=== PATIENT | male | born 1965 | race Caucasian/White ===

== ENCOUNTER → 2016-08-05 | Day surgery (SDC) | payer MEDICARE ==
[~2016-08-05] MED LIST: ALBUTEROL17 GM INH; ALPRAZOLAM PO; CELEXA PO; COUMADIN PO; COUMADIN3 MG PO; FLEXERIL10 MG PO; FLONASE16 GM; GOUT MEDICATION PO; LIPITOR PO; MAXZIDE-25 MG1 UDTAB PO; NEURONTIN600 MG PO; OXYCONTIN20 MG PO; PERCOCET10 PO; PRAVASTATIN SOD20 MG PO; ROBAXIN PO; SEROQUEL PO; TOPROL XL PO; TRAZODONE PO; WELLBUTRIN SR150 MG PO
--- NOTE | ~2016-08-05 | OR ---
Unit #: [id number] #: [id number] Patient: TAYA SHAVER [id number] [address] [place], [place] [address] [id number] O MR#: [id number] NAME: TAYA SHAVER ROOM: Date of Procedure: 08/05/2016 Admission Date: 08/05/2016 Surgeon: Elmo Pierre M.D. : 1965 Attending Physician: Elmo Pierre M.D. Primary Care Physician: Breanna Madrigal M.D. OPERATIVE REPORT PREOPERATIVE DIAGNOSES Radiculopathy, post-laminectomy syndrome, degenerative disk disease. POSTOPERATIVE DIAGNOSES Radiculopathy, post-laminectomy syndrome, degenerative disk disease. PROCEDURE PERFORMED Transforaminal epidural steroid injection with intravenous sedation and fluoroscopic guidance for needle localization. INDICATIONS FOR PROCEDURE The patient is a 51-year-old male with return of right lower extremity pain due to previous L4-5 right-sided laminectomy, still has scarring in neural foraminal narrowing at that level. He did very well for 6 months with a single transforaminal injection. That pain has returned over the last month and will not settle with conservative measures. Plan is to repeat another transforaminal injection. DESCRIPTION OF PROCEDURE The patient was placed in the prone position. Standard monitors were applied. 4 mg of Versed were given for sedation and anxiolysis, which were adequate. Vital signs remained stable. Sterile prep and drape then of the lumbosacral area was performed. The skin then to the right of midline at the L4-5 level was localized with 1% lidocaine. A long 22-gauge Quincke-point spinal needle was then advanced with biplanar fluoroscopic guidance to bring the needle tip within the right L4-5 neural foramina. The patient had a mild paresthesia upon entering neural foramina. After confirming proper positioning with biplanar fluoroscopy and radiographic contrast, a dose of 80 mg of Depo-Medrol and 1 mL of 0.25% bupivacaine were deposited. The patient tolerated the procedure otherwise well and was discharged to the recovery room in stable condition. Dictated by... Elmo Pierre M.D. BROOKE/fred TD: 08/05/2016 23:38 JOB #: [id number] Unit #: [id number] #: [id number] Patient: TAYA SHAVER OPERATIVE REPORT X Elmo Pierre MD X PROCEDURE OPERATIVE NOTE
== END | disposition home or self-care (01) ==
LOC: CCSC 10:07
DX: M96.1 Postlaminectomy syndrome, not elsewhere classified (principal); M51.16 Intervertebral disc disorders with radiculopathy, lumbar region; I25.10 Atherosclerotic heart disease of native coronary artery without angina pectoris; K21.9 Gastro-esophageal reflux disease without esophagitis
CPT/HCPCS: J1040; J2250

== ENCOUNTER → 2016-12-02 | Day surgery (SDC) | payer MEDICARE ==
--- NOTE | ~2016-12-02 | OR ---
Unit #: [id number] #: [id number] Patient: TAYA SHAVER [id number] [address] [place], [place] [address] [id number] O MR#: [id number] NAME: TAYA SHAVER ROOM: Date of Procedure: 12/02/2016 Admission Date: 12/02/2016 Surgeon: Elmo Pierre M.D. : 1965 Attending Physician: Elmo Pierre M.D. Primary Care Physician: Breanna Madrigal M.D. OPERATIVE REPORT PREOPERATIVE DIAGNOSES Post-laminectomy, degenerative disk disease, radiculopathy. POSTOPERATIVE DIAGNOSES Post-laminectomy, degenerative disk disease, radiculopathy. PROCEDURE PERFORMED Transforaminal epidural steroid injection with intravenous sedation and fluoroscopic guidance for needle localization. INDICATIONS FOR PROCEDURE The patient is a 51-year-old male with return of right lower extremity pain due to prior laminectomy as well as neural foraminal narrowing at the right L4-L5 level. He gets single epidural steroids via transforaminal approach every 6 months or so and he has done very well with this. Based on his good response, recent flare of his pain, symptom complex, and treatment options, we are going to proceed with a repeat transforaminal injection today. DESCRIPTION OF PROCEDURE The patient was placed in a prone position. Standard monitors were applied. Sterile prep and drape of the lumbosacral area was performed. The skin then to the right of midline at the L4-L5 level was localized with 1% lidocaine. A long 22-gauge Quincke point spinal needle was then advanced with biplanar fluoroscopic guidance to bring the needle tip to within the edge of the right L4-L5 neural foramina. The patient had mild paresthesia, which quickly abated. After confirming proper positioning with fluoroscopy and radiographic contrast, 80 mg of Depo-Medrol and 1 mL of 0.125% bupivacaine were deposited. The patient tolerated the procedure otherwise well and was discharged to recovery room in stable condition. Dictated by... Rios Turner/fred TD: 12/03/2016 01:03 JOB #: [id number] Unit #: [id number] #: [id number] Patient: TAYA SHAVER Keke OPERATIVE REPORT Page 1 of 1 X Elmo Pierre MD X PROCEDURE OPERATIVE NOTE
== END | disposition home or self-care (01) ==
LOC: CCSC 09:34
DX: M96.1 Postlaminectomy syndrome, not elsewhere classified (principal); M51.16 Intervertebral disc disorders with radiculopathy, lumbar region; K21.9 Gastro-esophageal reflux disease without esophagitis; I25.10 Atherosclerotic heart disease of native coronary artery without angina pectoris; Z86.73 Personal history of transient ischemic attack (TIA), and cerebral infarction without residual deficits
CPT/HCPCS: J1040; J2250

== ENCOUNTER → 2016-12-30 | Day surgery (SDC) | payer MEDICARE ==
--- NOTE | ~2016-12-30 | OR ---
Unit #: [id number] #: [id number] Patient: TAYA SHAVER [id number] [address] [place], [place] [address] [id number] O MR#: [id number] NAME: TAYA SHAVER ROOM: Date of Procedure: 12/30/2016 Admission Date: 12/30/2016 Surgeon: Elmo Pierre M.D. : 1965 Attending Physician: Elmo Pierre M.D. Primary Care Physician: Breanna Madrigal M.D. OPERATIVE REPORT PREOPERATIVE DIAGNOSES Postlaminectomy and radiculopathy. POSTOPERATIVE DIAGNOSES Postlaminectomy and radiculopathy. PROCEDURE PERFORMED Transforaminal epidural steroid injection with intravenous sedation and fluoroscopic guidance for needle localization. INDICATIONS FOR PROCEDURE The patient is a 51-year-old male with return of right lower extremity pain due to a prior L4-L5 laminectomy. He has known new compressive pathology. He was treated medically with p.r.n. epidural steroids via transforaminal approach and his leg pain does flare. In the past, he has gotten about 6 months of improvement with the injections. Last injection was not quite helpful. Based on his history, pathology, and symptomatology, plan is to repeat a transforaminal injection. DESCRIPTION OF PROCEDURE The patient was placed in a prone position. Standard monitors were applied. 4 mg of Versed were given for sedation and anxiolysis, which were adequate. Vital signs remained stable. Sterile prep and drape then of the lumbar area was performed. The skin to the right of midline at the L4-L5 level was localized with 1% lidocaine. A long 22-gauge Quincke point spinal needle was then advanced with biplanar fluoroscopic guidance to bring the needle tip within the right L4-L5 neural foramina. After confirming proper positioning with fluoroscopy and radiographic contrast, dose of 80 mg Depo-Medrol and 1 mL of 0.25% bupivacaine were deposited. The patient tolerated the procedure otherwise well and was discharged to the recovery room in stable condition. Dictated by... Elmo Pierre M.D. LHP/modl TD: 12/30/2016 13:41 JOB #: [id number] Unit #: [id number] #: [id number] Patient: TAYA SHAVER OPERATIVE REPORT Page 1 of 1 X Elmo Pierre MD X PROCEDURE OPERATIVE NOTE
== END | disposition home or self-care (01) ==
LOC: CCSC 09:30
DX: M96.1 Postlaminectomy syndrome, not elsewhere classified (principal); M54.16 Radiculopathy, lumbar region; I25.10 Atherosclerotic heart disease of native coronary artery without angina pectoris; K21.9 Gastro-esophageal reflux disease without esophagitis; E66.01 Morbid (severe) obesity due to excess calories; F41.9 Anxiety disorder, unspecified; F32.9 Major depressive disorder, single episode, unspecified
CPT/HCPCS: J1040; J2250